=== PATIENT | male | born 1945 | race Caucasian/White ===

== ENCOUNTER 2023-03-03 14:40 | Emergency (ER) | payer MEDICARE, BC ==
[2023-03-03] MEDS: Sodium Chloride 0.9% 10 ML Syringe FLUSH PRN (14:48)
[2023-03-03 14:54] VITALS: BP 144/61; PULSE 69
[2023-03-03 15:04] LABS: BASOPHILS ABSOLUTE AUTO 0.09 10^3/uL (0.00-0.10); BASOPHILS PERCENT AUTO 1.2 % (0.0-1.0); EOSINOPHILS ABSOLUTE AUTO 0.16 10^3/uL (0.10-0.30); EOSINOPHILS PERCENT AUTO 2.1 % (1.0-3.0); HEMATOCRIT 38.4 % (40.0-52.0); HEMOGLOBIN 12.5 g/dL (13.0-17.0); IMMATURE GRAN ABSOLUTE AUTO 0.04 10^3/uL (0.00-0.50); IMMATURE GRAN PERCENT AUTO 0.5 % (0.0-5.0); LYMPHOCYTES ABSOLUTE AUTO 1.42 10^3/uL (1.00-4.00); LYMPHOCYTES PERCENT AUTO 18.4 % (20.0-40.0); MEAN CORPUSCULAR HEMOGLOBIN 31.2 pg (27.0-31.0); MEAN CORPUSCULAR HGB CONC 32.6 g/dL (32.0-36.0); MEAN CORPUSCULAR VOLUME 95.8 fL (82.0-92.0); MEAN PLATELET VOLUME 9.5 fL (7.4-10.4); MONOCYTES ABSOLUTE AUTO 0.57 10^3/uL (0.10-0.80); MONOCYTES PERCENT AUTO 7.4 % (2.0-8.0); NEUTROPHILS ABSOLUTE AUTO 5.42 10^3/uL (2.50-7.00); NEUTROPHILS PERCENT AUTO 70.4 % (50.0-70.0); PLATELET COUNT,PLT 261 10^3/uL (150-400); RED BLOOD CELL COUNT 4.01 10^6/uL (4.50-6.00); RED CELL DISTRIBUTION WIDTH 17.6 % (11.5-14.5)
[2023-03-03 15:24] LABS: LACTIC ACID 1.7 mmol/L (0.4-2.0)
[2023-03-03 15:33] LABS: ALBUMIN 3.05 g/dL (3.40-5.00); BILIRUBIN TOTAL 0.4 mg/dL (0.2-1.0); CALCIUM 8.4 mg/dL (8.7-10.3); CARBON DIOXIDE,CO2 23.7 mmol/L (21.0-32.0); CREATININE 0.75 mg/dL (0.51-1.17); EST CRCL DRUG DOSING (CG) 91.97 mL/min; POTASSIUM,K 3.7 mmol/L (3.5-5.1); PROTEIN TOTAL,TP 7.3 g/dL (6.4-8.2)
[2023-03-03] MEDS: Ciprofloxacin in D5W 400 MG in Premix Bag 1 BAG IV ONE ×2 (16:10)
[2023-03-03] MEDS: Sodium Chloride 0.9% 100 ML IV SCH (16:10)
[2023-03-03] MEDS: Sodium Chloride 0.9% 100 ML ONE (16:11)
[2023-03-03] MEDS: Ciprofloxacin in D5W 200 ML ONE (16:11)
[2023-03-03] MEDS: Ciprofloxacin 500 MG Tab PO ONE (16:30)
[2023-03-03] MEDS: Clindamycin HCl 150 MG Cap PO ONE (16:40)
== END 2023-03-03 18:15 | disposition home or self-care (01) ==
LOC: KA.ED 14:40
DX: S91.302A Unspecified open wound, left foot, initial encounter (principal); E11.69 Type 2 diabetes mellitus with other specified complication; Z87.891 Personal history of nicotine dependence; Z79.82 Long term (current) use of aspirin; Z79.84 Long term (current) use of oral hypoglycemic drugs
CPT/HCPCS: 36415; 80053; 83605; 85025; 87040; 96365; 96367; 99283-25; 99284; A9270-GY; J0744; J3490